=== PATIENT | female | born 1975 | race Caucasian/White ===

== ENCOUNTER 2018-10-03 21:43 | Emergency (ER) | payer OTHER ==
[2018-10-03] MEDS ORDERED: PREDNISOLONE 0.12% RIGHT EYE ONE (21:55)
[2018-10-03] MEDS ORDERED: prednisoLONE 1% OPHTH.SUSP* 5 ML OPHTH.SUSP RIGHT EYE ONE (21:55)
[2018-10-03] MEDS ORDERED: OPTH RIGHT EYE ONE (21:55)
--- NOTE | 2018-10-03 21:56 | ED ---
Throat Pain/Nasal Congestion - HPI Summary HPI Summary: Patient with history of seizures and seasonal allergies complains of right eye irritation. States she normally takes prednisolone eyedrops for same, but has run out of medication. Denies vision change, fever, cough, sore throat, CP, SOB , N/V/D, abdominal pain, change in urine, change in BM. - History of Current Complaint Time Seen by Provider: 10/03/18 21:55 Hx Obtained From: Patient Onset/Duration: Gradual Onset, Lasting Days Severity: Moderate Associated Signs And Symptoms: Positive: Negative Cough: None Related History: Seasonal Allergies - Allergies/Home Medications Allergies/Adverse Reactions: Allergies Allergy/AdvReac Type Severity Reaction Status Date / Time No Known Allergies Allergy Unverified 04/20/18 12:06 PMH/Surg Hx/FS Hx/Imm Hx Endocrine/Hematology History: Denies: Hx Anticoagulant Therapy Cardiovascular History: Denies: Hx Pacemaker/ICD History: Denies: Hx Dialysis Sensory History: Denies: Hx Legally Blind Opthamlomology History: Denies: Hx Eye Prosthesis EENT History: Denies: Hx Deafness Neurological History: Denies: Hx Dementia - Immunization History Date of Tetanus Vaccine: UTD Date of Influenza Vaccine: UTD - Family History Known Family History: Positive: Non-Contributory - Social History Alcohol Use: Rare Substance Use Type: Reports: None Smoking Status (MU): Never Smoked Tobacco Review of Systems Constitutional: Negative Positive: Erythema. Negative: Drainage ENT: Negative Cardiovascular: Negative Respiratory: Negative Gastrointestinal: Negative Genitourinary: Negative Musculoskeletal: Negative Skin: Negative Neurological: Negative Psychological: Normal All Other Systems Reviewed And Are Negative: Yes Physical Exam Triage Information Reviewed: Yes Vital Signs Reviewed: Yes Appearance: Positive: Well-Appearing Skin: Positive: Warm Head/Face: Positive: Normal Head/Face Inspection Eyes: Positive: EOMI, HIRAL, Conjunctiva Inflammed. Negative: Discharge ENT: Positive: Normal ENT inspection Neck: Positive: Supple Respiratory/Lung Sounds: Positive: Clear to Auscultation Cardiovascular: Positive: Normal Abdomen Description: Positive: Nontender Musculoskeletal: Positive: Normal Neurological: Positive: Normal Psychiatric: Positive: Normal AVPU Assessment: Alert - Carey Coma Scale Best Eye Response: 4 - Spontaneous Best Motor Response: 6 - Obeys Commands Best Verbal Response: 5 - Oriented Coma Scale Total: 15 EENT Course/Dx - Course Course Of Treatment: Patient with history of seizures and seasonal allergies complains of right eye irritation. States she normally takes prednisolone eyedrops for same, but has run out of medication. Denies vision change, fever, cough, sore throat, CP, SOB, N/V/D, abdominal pain, change in urine, change in BM. Vital signs within normal limits. Prednisolone ophthalmic solution provided here in the ED. - Diagnoses Provider Diagnoses: Allergies Discharge - Sign-Out/Discharge Documenting (check all that apply): Patient Departure Patient Received Moderate/Deep Sedation with Procedure: No - Discharge Plan Condition: Stable Disposition: HOME Patient Education Materials: Allergies (ED) Referrals: No Primary Care Phys,NOPCP [Primary Care Provider] - Additional Instructions: Use 2 drops in right eye 4 times a day. Follow-up with primary care. - Billing Disposition and Condition Condition: STABLE Disposition: Home - Attestation Statements Provider Attestation: I am administratively signing this document. I was available for consultation for this patient. I did not evaluate the patient, did not have a doctor/patient relationship with the patient, or participate in any medical decision making or disposition decisions unless I am specifically named in the chart as having consulted on the patient. If I have consulted on the patient, please see my own ED note on the patient encounter. Yumi Platt MD
[2018-10-03 21:59] VITALS: BP 116/88
== END 2018-10-03 22:00 | disposition home or self-care (01) ==
LOC: ED 21:43
DX: J30.2 Other seasonal allergic rhinitis (principal)
CPT/HCPCS: 99282; A9270-GY